=== PATIENT | male | born 1980 | race African-American/Black ===

== ENCOUNTER 2017-12-01 19:50 | Emergency (ER) | payer BC ==
[2017-12-01] MEDS: predniSONE 10 MG TABLET PO ×2 (20:14)
[2017-12-01] MEDS: IBUPROFEN 800 MG TABLET. PO ×2 (20:14)
[2017-12-01] MEDS: IPRATRPIUM/ALBUTEROL 0.5/2.5MG 3 ML NEBU. NEB ×2 (20:21)
[2017-12-01 20:27] LABS: INFLUENZA A PATIENT NEGATIVE (NEGATIVE); INFLUENZA B PATIENT NEGATIVE (NEGATIVE); OBC FLU VALID
== END 2017-12-01 20:45 | disposition home or self-care (01) ==
LOC: ER 19:50
DX: R05 Cough (principal); R50.9 Fever, unspecified; M79.1 Myalgia; J34.89 Other specified disorders of nose and nasal sinuses; F17.210 Nicotine dependence, cigarettes, uncomplicated; Z88.0 Allergy status to penicillin
CPT/HCPCS: 87804; 87804-59; 94640; 99284; J7512; J7620

== ENCOUNTER 2020-11-27 11:20 | Emergency (ER) | payer BC ==
[~2020-11-27] VITALS: Ht 190.5 cm; Wt 136.0 kg
[~2020-11-27 11:20] MED LIST: ALBU2.5V8 INH; PRED50TA PO
[2020-11-27] MEDS ORDERED: IV NORMAL SALINE 1000ML BAG 1,000 ML IV ONE (11:45)
[2020-11-27] MEDS ORDERED: MECLIZINE HCL 12.5 MG TABLET. PO ONE (11:45)
[2020-11-27 12:18] LABS: CALCIUM 9.6 mg/dL (8.5-10.1); GFR 101.2; POTASSIUM 3.5 mmol/L (3.5-5.1)
[2020-11-27 12:24] LABS: ALBUMIN 4.1 g/dL (3.4-5.0); ALBUMIN/GLOBULIN RATIO 1.1 (1.0-1.7); MAGNESIUM 2.3 mg/dL (1.8-2.4); TOTAL BILIRUBIN 1.1 mg/dL (0.2-1.0); TOTAL PROTEIN 7.9 g/dL (6.4-8.2)
--- NOTE | 2020-11-27 12:28 | PHYS DOC ---
Past Medical History Past Medical History: Hypertension Past Surgical History: No Surgical History Smoking Status: Current Every Day Smoker Alcohol Use: None Drug Use: None General Adult EDM: Chief Complaint: DIZZY/LIGHT HEADED HPI: HPI: Patient is a 39 year old male with a history of hypertension who presents to the ED today complaining of intermittent episodes of dizziness with nausea, symptoms began August of last year. [facility] has had labwork and EKG and was sent to see a handbag frames inspector as well as the PCP. He has been seen by the PCP as recently as this week and was started on metoprolol for his blood pressure. He states today he was at work and he felt dizzy and was nauseous and decided to come to the ED to be seen. Denies any chest pain or shortness of breath. Denies anything specifically exacerbating or relieving his dizziness. Review of Systems: Review of Systems: Constitutional: Denies fever or chills. [] Eyes: Denies change in visual acuity. [] HENT: Denies nasal congestion or sore throat. [] Respiratory: Denies cough or shortness of breath. [] Cardiovascular: Denies chest pain or edema. [] GI: Reports nausea. Denies abdominal pain,vomiting, bloody stools or diarrhea. [] : Denies dysuria. [] Musculoskeletal: Denies back pain or joint pain. [] Integument: Denies rash. [] Neurologic: Reports dizziness denies headache, focal weakness or sensory changes. [] Psychiatric: Denies depression or anxiety. [] Heart Score: Risk Factors: Risk Factors: DM, Current or recent (<one month) smoker, HTN, HLP, family history of CAD, obesity. Risk Scores: Score 0 - 3: 2.5% MACE over next 6 weeks - Discharge Home Score 4 - 6: 20.3% MACE over next 6 weeks - Admit for Clinical Observation Score 7 - 10: 72.7% MACE over next 6 weeks - Early Invasive Strategies Current Medications: Current Medications Medications (Trade) Dose Ordered Sig/Gabriela Start Time Stop Time Status Last Admin Dose Admin Meclizine HCl (Antivert) 12.5 mg 1X ONCE 11/27/20 11:45 11/27/20 11:54 DC 11/27/20 12:03 12.5 MG Sodium Chloride 1,000 ml @ 1,000 mls/hr 1X ONCE 11/27/20 11:45 11/27/20 12:44 11/27/20 12:10 1,000 MLS/HR Allergies: Allergies: Allergies Coded Allergies Type Severity Reaction Last Updated Verified Penicillins Allergy Intermediate 12/01/17 Yes Physical Exam: PE: Constitutional: Well developed, well nourished, no acute distress, non-toxic appearance. [] HENT: Normocephalic, atraumatic, bilateral external ears normal, oropharynx moist, no oral exudates, nose normal. [] Eyes: PERRLA, EOMI, conjunctiva normal, no discharge. [] Neck: Normal range of motion, no tenderness, supple, no stridor. [] Cardiovascular:Heart rate regular rhythm, no murmur [] Lungs & Thorax: Bilateral breath sounds clear to auscultation [] Abdomen: Bowel sounds normal, soft, no tenderness, no masses, no pulsatile masses. [] Skin: Warm, dry, no erythema, no rash. [] Back: No tenderness, no CVA tenderness. [] Extremities: No tenderness, no cyanosis, no clubbing, ROM intact, no edema. [] Neurologic: Alert and oriented X 3, normal motor function, normal sensory function, no focal deficits noted. Cranial nerves II through XII intact Psychologic: Affect normal, judgement normal, mood normal. [] Current Patient Data: Labs: Laboratory Tests Test 11/27/20 11:32 Sodium Level 141 mmol/L (136-145) Potassium Level 3.5 mmol/L (3.5-5.1) Chloride Level 100 mmol/L (98-107) Carbon Dioxide Level 25 mmol/L (21-32) Anion Gap 16 (6-14) H Blood Urea Nitrogen 15 mg/dL (8-26) Creatinine 1.0 mg/dL (0.7-1.3) Estimated GFR (Cockcroft-Gault) 101.2 BUN/Creatinine Ratio 15 (6-20) Glucose Level 135 mg/dL (70-99) H Calcium Level 9.6 mg/dL (8.5-10.1) Magnesium Level Pending Total Bilirubin Pending Aspartate Amino Transferase (AST) Pending Alanine Aminotransferase (ALT) Pending Alkaline Phosphatase Pending Total Protein Pending Albumin Pending Albumin/Globulin Ratio Pending Laboratory Tests 11/27/20 11:32 Vital Signs: Vital Signs Date Time Temp Pulse Resp B/P (MAP) Pulse Ox O2 Delivery O2 Flow Rate FiO2 11/27/20 11:37 98.1 97 18 161/76 (104) 97 Room Air 98.1 EKG: EK interpreted by Dr. Hernandez sinus rhythm HR 99 no STEMI[] Radiology/Procedures: Radiology/Procedures: []PROCEDURE: PORTABLE CHEST 1V EXAM: Chest, single view. HISTORY: Dizziness. COMPARISON: None. FINDINGS: A frontal view of the chest is obtained. There is no infiltrate, pleural effusion or pneumothorax. The heart is normal in size. IMPRESSION: No acute pulmonary finding. Electronically signed by: Misa Seaman MD (11/27/2020 12:38 PM) [id number] DICTATED and SIGNED BY: MISA SEAMAN MD DATE: 11/27/20 [id number] 0 PROCEDURE: CT HEAD WO CONTRAST CT HEAD INDICATION: Dizziness COMPARISON: None Available. Exposure: One or more of the following individualized dose reduction techniques were utilized for this examination: 1. Automated exposure control 2. Adjustment of the mA and/or kV according to patient size 3. Use of iterative reconstruction technique TECHNIQUE: 5 mm contiguous axial images were obtained from the skull base to the vertex in both bone and soft tissue algorithm. FINDINGS: No abnormal attenuation within the brain parenchyma. No evidence of acute intracranial hemorrhage. No extra-axial fluid collections. No mass effect or midline shift. Ventricular size is appropriate. Basal cisterns are patent. No fractures identified.Cerna-white differentiation is preserved.Globes and orbits are within normal limits. Opacification of the left mastoid air cells. IMPRESSION: 1. No acute intracranial findings. 2. Opacification of the left mastoid air cells could be fluid in the mastoid air cells. Electronically signed by: Sriram Caldwell MD (11/27/2020 2:08 PM) [id number] DICTATED and SIGNED BY: SRIRAM CALDWELL MD DATE: 11/27/20 [id number] 0 Course & Med Decision Making: Course & Med Decision Making Pertinent Labs and Imaging studies reviewed. (See chart for details) This is a 39-year-old male patient presenting to the ED today with dizziness and nausea intermittently since August of last year. Patient reports being worked up several times for this symptoms with no actual cause. Was started on metoprolol for his high blood pressure this week. Today he got dizzy and nauseous at work and came to the Ed. CBC CMP with no acute findings, UA negative for any acute findings, CT of the head is negative for any acute findings, noted for opacification of the left ma stoid air cells could be fluid in the mastoid air cells. Patient reports being treated for ear infection he can not remember when He was given meclizine and IV fluids in the ED. He states he feels much better and would like to go home. Discharge to home provided neurologist and ENT for follow-up.. He has a handbag frames inspector and PCP Fab Disclaimer: Fab Disclaimer: This electronic medical record was generated, in whole or in part, using a voice recognition dictation system. Departure Departure Impression: Primary Impression: Dizziness Additional Impressions: Hypertension Qualified Codes: I10 - Essential (primary) hypertension Nausea Disposition: 01 DC HOME SELF CARE/HOMELESS Condition: STABLE Referrals: NAYAN GODFREY MD (PCP) follow up next week CLAYTON JSEUS MD follow up next week IVETTE JETT MD follow up in 2 weeks Patient Instructions: Dizziness, [id number] Additional Instructions: You were evaluated in the emergency room for dizziness. Your work-up was negative for any acute findings. Please continue following up with your primary care doctor as your handbag frames inspector, we also provided your neurologist and ENT. Scripts Ondansetron (ONDANSETRON ODT) 4 Mg Tab.rapdis 1 TAB PO PRN Q6-8HRS, #16 TAB Prov: ROSITA MARRERO APRN 11/27/20 Meclizine Hcl (MECLIZINE HCL) 25 Mg Tablet 1 TAB PO TID PRN for DIZZINESS, #30 TAB Prov: MUTCASSIEAROSITA VICE PRESIDENT [employer] 11/27/20 ROSITA MARRERO APRN Nov 27, 2020 12:27
--- NOTE | 2020-11-27 12:40 | RAD ---
EXAM: Chest, single view. HISTORY: Dizziness. COMPARISON: None. FINDINGS: A frontal view of the chest is obtained. There is no infiltrate, pleural effusion or pneumo thorax. The heart is normal in size. IMPRESSION: No acute pulmonary finding. Electronically signed by: Misa Valencia MD (11/27/2020 12:38 PM) [id number]
[2020-11-27 13:31] LABS: BASO % 0 % (0-3); EOS # 0.3 x10^3/uL (0.0-0.7); EOS % 3 % (0-3); HEMATOCRIT 48.6 % (39.0-53.0); HEMOGLOBIN 16.3 g/dL (13.0-17.5); LYMPH # 2.3 x10^3/uL (1.0-4.8); LYMPH % 22 % (24-48); MEAN CORPUSCULAR HEMOGLOBIN 29 pg (25-35); MEAN CORPUSCULAR HGB CONC 33 g/dL (31-37); MEAN CORPUSCULAR VOLUME 88 fL (79-100); MONO # 0.9 x10^3/uL (0.0-1.1); MONO % 9 % (0-9); NEUT # 6.8 x10^3/uL (1.8-7.7); NEUT % 66 % (31-73); RED BLOOD COUNT 5.52 x10^6/uL (4.30-5.70); RED CELL DISTRIBUTION WIDTH 12.8 % (11.5-14.5); WHITE BLOOD COUNT 10.4 x10^3/uL (4.0-11.0)
[2020-11-27 13:37] LABS: PLATELET COUNT 187 x10^3/uL (140-400)
[2020-11-27 13:55] LABS: BILIRUBIN,URINE NEGATIVE (NEG); CLARITY,URINE CLEAR; COLOR,URINE YELLOW; NITRITE,URINE NEGATIVE (NEG); PH,URINE 6.5 (<5.0-8.0); PROTEIN,URINE NEGATIVE (NEG-TRACE); UROBILINOGEN,URINE 0.2 mg/dL (0.2 mg/dL)
[2020-11-27 14:04] LABS: BARBITURATES NEG (NEG); BENZODIAZEPINES NEG (NEG); CANNABINOIDS NEG (NEG); COCAINE NEG (NEG); METHADONE NEG (NEG); OPIATES NEG (NEG); PHENCYCLIDINE NEG (NEG)
[2020-11-27 14:06] LABS: AMPHETAMINE/METHAMPHETAMINE NEG (NEG)
--- NOTE | 2020-11-27 14:11 | RAD ---
CT HEAD INDICATION: Dizziness COMPARISON: None Available. Exposure: One or more of the following individualized dose reduction techniques were utilized for thi s examination: 1. Automated exposure control 2. Adjustment of the mA and/or kV according to patient size 3. Use of iterative reconstruction technique TECHNIQUE: 5 mm contiguous axial images were obtained from the skull base to the vertex in both bone and soft tissue algorithm. FINDINGS: No abnormal attenuation within the brain parenchyma. No evidence of acute intracranial hemorrhage. No extra-axial fluid collections. No mass effect or midline shift. Ventricular size is appropriate. Basal cisterns are patent. No fractures identified.Cerna-white differentiation is preserved.Globes and orbits are within normal l imits. Opacification of the left mastoid air cells. IMPRESSION: 1. No acute intracranial findings. 2. Opacification of the left mastoid air cells could be fluid in the mastoid air cells. Electronically signed by: Sriram Caldwell MD (11/27/2020 2:08 PM) [id number]
[2020-11-27 14:13] LABS: BACTERIA,URINE 0 /HPF (0-FEW); RBC,URINE 0 /HPF (0-2); WBC,URINE 0 /HPF (0-4)
[2020-11-27 14:29] VITALS: BP 150/70
[2020-11-27] MEDS ORDERED: ONDA4TAB12 PO (14:44)
[2020-11-27] MEDS ORDERED: MECL-75 PO (14:44)
== END 2020-11-27 15:03 | disposition home or self-care (01) ==
LOC: ER 11:20
DX: R42 Dizziness and giddiness (principal); I10 Essential (primary) hypertension; F17.200 Nicotine dependence, unspecified, uncomplicated; Z88.0 Allergy status to penicillin
CPT/HCPCS: 36415; 70450; 71045; 80053; 80307; 81001; 83735; 83880; 84443; 84484; 85025; 93005; 96360; 99285; J7030; J8597

== ENCOUNTER → 2020-12-30 | Outpatient (CLI) | payer BC ==
[~2020-12-30] MED LIST changes: +MECL-75 PO; +ONDA4TAB12 PO
--- NOTE | 2020-12-30 18:37 | CARD ---
MR#: [id number] Date of Study: 12/30/2020 Ordering Physician: SHER SAMPSON, Referring Physician: SHER SAMPSON, Tech: Amy Harrington [facility] APPROVED REPORT EXAM: Two-dimensional and M-mode echocardiogram with Doppler and color Doppler. Other Information Quality : FairHR: 68bpm Rhythm : NSR INDICATION Dizziness and Vertigo Fatigue RISK FACTORS Obesity 2D DIMENSIONS Left Atrium(2D)3.2 (1.6-4.0cm)IVSd1.3 (0.7-1.1cm) Aortic Root(2D)3.0 (2.0-3.7cm)LVDd4.9 (3.9-5.9cm) LVOT Diameter2.2 (1.8-2.4cm)PWd1.1 (0.7-1.1cm) IVSs1.6 (0.8-1.2cm)LVDs3.3 (2.5-4.0cm) FS (%) 32.4 %PWs1.7 (0.8-1.2cm) SV67.9 mlLVEF(%)60.5 (>50%) Aortic Valve AoV Peak Thaddeus.145.2cm/sAoV VTI28.1cm AO Peak GR.8.4mmHgLVOT Peak Thaddeus.133.0cm/s LVOT VTI 23.55cmAO Mean GR.5mmHg TARA (VMAX)2.06hr2SOM (VTI)3.28cm2 Mitral Valve MV E Acyhczjg89.8cm/sMV DECEL [id number] MV A Msjejrww64.5cm/sMV WVT51ts E/A Ratio1.8MVA (PHT)3.66cm2 Pulmonary Valve PV Peak Hhqvxxpi052.1cm/sPV Peak Grad.7mmHg LEFT VENTRICLE The left ventricle is normal size. There is mild concentric left ventricular hypertrophy. The left ve ntricular systolic function is normal. The ejection fraction is 55-60%. There is normal LV segmental wall motion. The left ventricular diastolic function and filling is normal for age. RIGHT VENTRICLE The right ventricle is normal size. There is normal right ventricular wall thickness. The right ventr icular systolic function is normal. ATRIA The left atrium size is normal. The right atrium size is normal. The interatrial septum is intact wit h no evidence for an atrial septal defect or patent foramen ovale as noted on 2-D or Doppler imaging. AORTIC VALVE The aortic valve is normal in structure and function. Doppler and Color Flow revealed no significant aortic regurgitation. There is no significant aortic valvular stenosis. MITRAL VALVE The mitral valve is normal in structure and function. There is no evidence of mitral valve prolapse. There is no mitral valve stenosis. Doppler and Color Flow revealed no mitral valve regurgitation note d. TRICUSPID VALVE The tricuspid valve is normal in structure and function. Doppler and Color Flow revealed no tricuspid valve regurgitation noted. There is no tricuspid valve stenosis. PULMONIC VALVE The pulmonary valve is normal in structure and function. Doppler and Color Flow revealed no pulmonic valvular regurgitation. GREAT VESSELS The aortic root is normal in size. The ascending aorta is normal in size. The IVC is normal in size a nd collapses >50% with inspiration. PERICARDIAL EFFUSION There is no evidence of significant pericardial effusion. Critical Notification Critical Value: No <Conclusion> The left ventricular systolic function is normal. The ejection fraction is 55-60%. There is normal LV segmental wall motion. There is no evidence of significant pericardial effusion. Signed by : Carroll Sheth, Electronically Approved : 12/30/2020 18:36:59
== END ==
LOC: ECHO 09:57
PROVIDERS: ATTEND Internal Medicine Cardiovascular Disease
DX: I11.9 Hypertensive heart disease without heart failure (principal)
CPT/HCPCS: 93306